=== PATIENT | male | born 1950 | race Caucasian/White ===

== ENCOUNTER 2017-08-13 18:31 | Emergency (ER) | payer OTHER ==
[~2017-08-13] VITALS: Ht 175.3 cm; Wt 77.1 kg
== END 2017-08-13 21:18 | disposition home or self-care (01) ==
LOC: ER 18:31
DX: S00.93XA Contusion of unspecified part of head, initial encounter (principal); W22.8XXA Striking against or struck by other objects, initial encounter; Y93.89 Activity, other specified; Y92.89 Other specified places as the place of occurrence of the external cause; Y99.8 Other external cause status

== ENCOUNTER 2019-06-05 08:41 | Emergency (ER) | payer OTHER ==
[~2019-06-05] VITALS: Ht 175.3 cm; Wt 79.4 kg
[2019-06-05 08:48] VITALS: BP 146/84
[2019-06-05] MEDS ORDERED: NOHOMEMEDICATIONS (08:50)
== END 2019-06-05 09:55 | disposition home or self-care (01) ==
LOC: ER 08:41
DX: S30.810A Abrasion of lower back and pelvis, initial encounter (principal); W10.8XXA Fall (on) (from) other stairs and steps, initial encounter; Y93.89 Activity, other specified; Y92.89 Other specified places as the place of occurrence of the external cause; Y99.8 Other external cause status

== ENCOUNTER 2019-06-07 11:58 | Emergency (ER) | payer OTHER ==
[~2019-06-07] VITALS: Ht 175.3 cm; Wt 77.1 kg
[~2019-06-07 11:58] MED LIST: NOHOMEMEDICATIONS
[2019-06-07] MEDS ORDERED: NORCO 5-325 TA1 EAC1 PO (14:25)
[2019-06-07] MEDS ORDERED: NORFLEX100 MG PO (14:25)
[2019-06-07] MEDS ORDERED: NAPROSYN500 MG PO (14:25)
[2019-06-07 14:40] VITALS: BP 168/101
== END 2019-06-07 14:49 | disposition home or self-care (01) ==
LOC: ER 11:58
DX: M54.5 Low back pain (principal)